=== PATIENT | male | born 1990 | race Caucasian/White ===

== ENCOUNTER → 2019-07-31 11:16 | Outpatient (CLI) | payer MEDICAID, SELFPAY ==
[2016-07-11 10:12] VITALS: BMI 26.9
[2019-07-31 13:53] LABS: HIV - WCH Non-Reactive (Nonreactive)
== END ==
PROVIDERS: Family Provider Family Medicine; PCP Family Medicine; Referring Provider Family Medicine; Visit Provider Family Medicine
DX: Z20.6 Contact with and (suspected) exposure to human immunodeficiency virus [HIV] (principal)
CPT/HCPCS: 36415; 86703

== ENCOUNTER → 2020-09-22 12:24 | Outpatient (CLI) | payer MEDICAID, SELFPAY ==
[2016-07-11 10:12] VITALS: BMI 26.9
== END ==
PROVIDERS: PCP Family Medicine; Visit Provider Family Medicine
DX: Z20.828 Contact with and (suspected) exposure to other viral communicable diseases (principal)
CPT/HCPCS: 87635; U0003